=== PATIENT | male | born 1930 | race Caucasian/White ===

== ENCOUNTER 2019-07-21 13:34 | Emergency (ER) | payer OTHER, BC ==
[~2019-07-21] VITALS: Ht 180.3 cm; Wt 85.3 kg
[2019-07-21 13:41] VITALS: Ht 180.3 cm; Wt 85.3 kg
[2019-07-21 14:53] LABS: PLATELET COUNT 149 x10^3mcL (130-400); RED CELL DISTRIBUTION WIDTH 12.9 % (11.5-14.5)
[2019-07-21 15:16] LABS: CALCIUM 8.1 mg/dL (8.5-10.1); CARBON DIOXIDE 32.4 mmol/L (21-32); CHLORIDE SERUM 100 mmol/L (98-107); CREATININE SERUM 1.1 mg/dL (0.7-1.3); GLUCOSE SERUM 91 mg/dL (74-106); POTASSIUM SERUM 3.4 mmol/L (3.5-5.1); SODIUM SERUM 140 mmol/L (136-145)
[2019-07-21 15:21] LABS: ALBUMIN 3.3 g/dL (3.4-5.0); ALKALINE PHOSPHATASE 64 U/L (46-116); ALT/SGPT 14 U/L (16-63); AST/SGOT 12 U/L (15-37); BILIRUBIN TOTAL 0.8 mg/dL (0.20-1.00); MAGNESIUM 1.8 mg/dL (1.8-2.4); PHOSPHOROUS 3.1 mg/dL (2.5-4.9); TOTAL PROTEIN, SERUM 6.4 g/dL (6.4-8.2)
[2019-07-21 15:34] LABS: microscopic required? NO
[2019-07-21 15:40] LABS: urine erythrocyte NEGATIVE (NEGATIVE)
[2019-07-21 17:17] VITALS: BP 140/76
== END 2019-07-21 17:17 | disposition home or self-care (01) ==
LOC: ED 13:34
PROVIDERS: Emergency Medicine
DX: K20.9 Esophagitis, unspecified (principal); R11.10 Vomiting, unspecified; E86.0 Dehydration; E87.6 Hypokalemia; G30.9 Alzheimer's disease, unspecified; F02.80 Dementia in other diseases classified elsewhere, unspecified severity, without behavioral disturbance, psychotic disturbance, mood disturbance, and anxiety
CPT/HCPCS: J2405; J7030; Q0092